=== PATIENT | female | born 2000 | race African-American/Black ===

== ENCOUNTER 2018-07-24 16:51 | Emergency (ER) | payer OTHER ==
[~2018-07-24] VITALS: Ht 165.1 cm; Wt 65.8 kg
[2018-07-24 17:31] LABS: ABSOLUTE NEUTROPHILS 7.3 thou/uL (1.4-8.2); BASOPHILS 0.1 % (0.0-2.0); EOSINOPHILS 1.1 % (0.0-3.0); HEMATOCRIT 45.5 % (37.0-47.0); HEMOGLOBIN 15.7 gm/dL (12.0-15.0); LYMPHOCYTES 11.6 % (24.0-44.0); MCH 28.4 pg (26.0-34.0); MCHC 34.5 g/dL (28.0-37.0); MCV 82.1 fL (80.0-100.0); MONOCYTES 5.8 % (1.0-8.0); PLATELET COUNT 302 thou/uL (150-400); POLYS 81.4 % (36.0-66.0); RBC 5.54 mil/uL (4.20-5.00); RDW 14.7 % (10.5-14.5)
[2018-07-24 17:34] LABS: URINE BILIRUBIN NEGATIVE (Negative); URINE BLOOD 3+ (Negative); URINE CLARITY SL CLOUDY; URINE COLOR YELLOW; URINE GLUCOSE-RANDOM* NEGATIVE (Negative); URINE KETONES NEGATIVE (Negative); URINE LEUKOCYTES-REFLEX TRACE (Negative); URINE PROTEIN (DIPSTICK) TRACE (Negative); URINE SPECIFIC GRAVITY >= 1.030 (1.005-1.035); URINE UROBILINOGEN 0.2 E.U./dl (0.2-1.0)
[2018-07-24 17:35] LABS: CALCIUM 9.3 mg/dL (8.5-10.1); POTASSIUM 3.9 mmol/L (3.5-5.1)
[2018-07-24 17:38] LABS: URINE NITRITE-REFLEX POSITIVE (Negative)
[2018-07-24 17:41] LABS: ALBUMIN 4.1 g/dL (3.4-5.0); TOTAL BILIRUBIN 0.6 mg/dL (<0.1-1.0); TOTAL PROTEIN 8.2 g/dL (6.4-8.2)
[2018-07-24 17:46] LABS: BACTERIA-REFLEX >30 Many /HPF (None Seen); CASTS None Seen /LPF (None Seen); CRYSTALS None Seen /LPF (None Seen); SQUAMOUS 0-3 Few /LPF (0-3); URINE RBC >20 Many /HPF (0-2)
[2018-07-24 17:47] LABS: WBC CLUMPS Moderate (None Seen)
[2018-07-24] MEDS ORDERED: ZOFRAN ODT4 MG DISSOLVE (18:49)
[2018-07-24] MEDS ORDERED: NAPROSYN500 MG PO (18:49)
[2018-07-24] MEDS ORDERED: ORTHO TRI-CYCL1 EACH PO (18:51)
[2018-07-24 20:04] VITALS: BP 115/76
== END 2018-07-24 20:05 | disposition home or self-care (01) ==
LOC: ER 16:51
PROVIDERS: Emergency Medicine; Nurse Practitioner Family
DX: N94.6 Dysmenorrhea, unspecified (principal); A59.9 Trichomoniasis, unspecified; R11.2 Nausea with vomiting, unspecified; N92.0 Excessive and frequent menstruation with regular cycle; R19.7 Diarrhea, unspecified

== ENCOUNTER 2018-12-20 12:13 | Emergency (ER) | payer OTHER ==
[~2018-12-20] VITALS: Ht 167.6 cm; Wt 70.3 kg
[~2018-12-20 12:13] MED LIST: NAPROSYN500 MG PO; ORTHO TRI-CYCL1 EACH PO; ZOFRAN ODT4 MG DISSOLVE
[2018-12-20 12:23] LABS: URINE BILIRUBIN NEGATIVE (Negative); URINE BLOOD NEGATIVE (Negative); URINE CLARITY SL CLOUDY; URINE COLOR YELLOW; URINE GLUCOSE-RANDOM* NEGATIVE (Negative); URINE KETONES NEGATIVE (Negative); URINE PROTEIN (DIPSTICK) NEGATIVE (Negative); URINE SPECIFIC GRAVITY 1.015 (1.005-1.035); URINE UROBILINOGEN 0.2 E.U./dl (0.2-1.0)
[2018-12-20 12:25] LABS: URINE LEUKOCYTES-REFLEX 3+ (Negative); URINE NITRITE-REFLEX POSITIVE (Negative)
[2018-12-20 12:34] LABS: CASTS None Seen /LPF (None Seen); SQUAMOUS >10 Many /LPF (0-3)
[2018-12-20 12:35] LABS: BACTERIA-REFLEX >30 Many /HPF (None Seen); CRYSTALS None Seen /LPF (None Seen); URINE RBC 0-2 Rare /HPF (0-2); URINE WBC-REFLEX 6-15 Few /HPF (0-5)
[2018-12-20 12:43] LABS: ABSOLUTE NEUTROPHILS 7.7 thou/uL (1.4-8.2); BASOPHILS 0.4 % (0.0-2.0); EOSINOPHILS 0.7 % (0.0-3.0); HEMATOCRIT 38.4 % (37.0-47.0); HEMOGLOBIN 13.3 gm/dL (12.0-15.0); LYMPHOCYTES 15.9 % (24.0-44.0); MCH 29.9 pg (26.0-34.0); MCHC 34.7 g/dL (28.0-37.0); MCV 86.3 fL (80.0-100.0); MONOCYTES 5.9 % (1.0-8.0); POLYS 77.1 % (36.0-66.0); RBC 4.45 mil/uL (4.20-5.00); RDW 14.2 % (10.5-14.5)
[2018-12-20] MEDS ORDERED: ADDERALL 15 MG15 MG PO (12:43)
[2018-12-20 12:52] LABS: CALCIUM 9.7 mg/dL (8.5-10.1); CREATININE 0.9 mg/dL (0.6-1.0); POTASSIUM 3.7 mmol/L (3.5-5.1)
[2018-12-20 12:58] LABS: ALBUMIN 3.7 g/dL (3.4-5.0); TOTAL BILIRUBIN 0.5 mg/dL (<0.1-1.0); TOTAL PROTEIN 8.3 g/dL (6.4-8.2)
[2018-12-20 13:45] LABS: LARGE PLATELETS OCCASIONAL; PLATELET COUNT 214 thou/uL (150-400)
[2018-12-20] MEDS ORDERED: ONDANSETRON HCL4 M2 PO (13:58)
[2018-12-20] MEDS ORDERED: KEFLEX500 M1 PO (13:58)
[2018-12-20] MEDS ORDERED: VITAFOL-OB+DHA1 EACH PO (13:58)
[2018-12-20 14:31] VITALS: BP 112/63
== END 2018-12-20 14:32 | disposition home or self-care (01) ==
LOC: ER 12:13
PROVIDERS: Emergency Medicine; Physician Assistant
DX: O23.41 Unspecified infection of urinary tract in pregnancy, first trimester (principal); O21.9 Vomiting of pregnancy, unspecified; F17.210 Nicotine dependence, cigarettes, uncomplicated; Z3A.01 Less than 8 weeks gestation of pregnancy

== ENCOUNTER 2019-02-23 17:21 | Emergency (ER) | payer OTHER ==
[~2019-02-23] VITALS: Ht 167.6 cm; Wt 70.3 kg
[~2019-02-23 17:21] MED LIST changes: +ADDERALL 15 MG15 MG PO; +KEFLEX500 M1 PO; +ONDANSETRON HCL4 M2 PO; +VITAFOL-OB+DHA1 EACH PO
[2019-02-23 18:18] LABS: URINE BILIRUBIN NEGATIVE (Negative); URINE BLOOD NEGATIVE (Negative); URINE CLARITY CLEAR; URINE COLOR YELLOW; URINE GLUCOSE-RANDOM* NEGATIVE (Negative); URINE KETONES NEGATIVE (Negative); URINE NITRITE-REFLEX NEGATIVE (Negative); URINE PROTEIN (DIPSTICK) NEGATIVE (Negative); URINE UROBILINOGEN 0.2 E.U./dl (0.2-1.0)
[2019-02-23 18:19] LABS: URINE LEUKOCYTES-REFLEX 3+ (Negative)
[2019-02-23 18:28] LABS: SQUAMOUS >10 Many /LPF (0-3)
[2019-02-23 18:29] LABS: CASTS None Seen /LPF (None Seen)
[2019-02-23 18:30] LABS: BACTERIA-REFLEX None Seen /HPF (None Seen); CRYSTALS None Seen /LPF (None Seen); URINE RBC None Seen /HPF (0-2)
[2019-02-23] MEDS ORDERED: KEFLEX500 M1 PO (18:45)
[2019-02-23] MEDS ORDERED: ZOFRAN ODT4 MG DISSOLVE (18:45)
[2019-02-23 19:24] VITALS: BP 113/73
== END 2019-02-23 19:27 | disposition home or self-care (01) ==
LOC: ER 17:21
PROVIDERS: Physician Assistant
DX: O23.41 Unspecified infection of urinary tract in pregnancy, first trimester (principal); F17.210 Nicotine dependence, cigarettes, uncomplicated; Z3A.01 Less than 8 weeks gestation of pregnancy